=== PATIENT | male | born 1955 | race African-American/Black ===

== ENCOUNTER 2024-04-11 12:06 | Inpatient (IN) | payer OTHER ==
[2024-04-11 14:43] VITALS: BMI 36.3
[2024-04-11] MEDS ORDERED: Calcium Carbonate 500 MG ChewTAB PO PRN (15:38)
[2024-04-11] MEDS ORDERED: Acetaminophen 650 MG Suppository PR PRN (15:38)
[2024-04-11] MEDS ORDERED: Ondansetron PF 4 MG/2 ML Vial IVP PRN (15:38)
[2024-04-11] MEDS ORDERED: Ondansetron ODT 4 MG TAB PO PRN (15:38)
[2024-04-11 19:11] LABS: Hemoglobin A1c 7.2 % (4.0-6.0)
[2024-04-11] MEDS ORDERED: Dextrose 5% in Water 1,000 ML IV PRN (20:07)
[2024-04-11] MEDS ORDERED: HumaLOG 300 UNITS/3 ML VIAL SC PRN (20:07)
[2024-04-11] MEDS ORDERED: Dextrose 50% Abboject 50 ML SYRINGE SLOW IVP PRN (20:07)
[2024-04-11] MEDS ORDERED: Glucagon 1 MG/ML KIT IM PRN (20:07)
[2024-04-11] MEDS: Atorvastatin Calcium 40 MG TAB PO SCH (22:05)
[2024-04-12 04:26] LABS: #Basophils 0.03 10x3/uL (0.0-0.2); #Eosinphils Less than 0.03 10x3/uL (0.0-0.7); %Basophils 0.4 % (0.0-1.0); %Lymphocytes 18.5 % (21.0-51.0); %Monocytes 13.1 % (0.0-10.0); %Neutrophils 67.8 % (42.0-75.0); Hematocrit 38.7 % (42.0-52.0); Hemoglobin 11.8 g/dL (14.0-18.0); Mean Corpuscular HGB CONC 30.5 g/dL (32.0-36.0); Mean Corpuscular Hemoglobin 23.4 pg (27.0-31.0); Mean Corpuscular Volume 76.6 fL (78.0-98.0); Platelet Count 324 10x3/uL (130-400); Red Blood Cell (RBC) Count 5.05 mill/uL (4.70-6.10)
[2024-04-12 04:41] LABS: Anion Gap 13 mmol/L (10-20); BUN (Urea Nitrogen) 20 mg/dL (8.4-25.7); Calc. Creatinine Clearance 100 mL/min (70-130); Calcium 9.6 mg/dL (7.8-10.44); Carbon Dioxide 27 mmol/L (23-31); Cardiac Risk 5.8 (Less than 4.5); Chloride 102 mmol/L (98-107); Cholesterol 144 mg/dl (< 200 Desired); Estimated GFR 73; Glucose 119 mg/dL (80-115); HDL Cholesterol 25 mg/dL (>60 Neg Risk); LDL Cholesterol, Calculated 92 mg/dL; Potassium 4.3 mmol/L (3.5-5.1); Sodium 138 mmol/L (136-145); Triglycerides 133 mg/dL (Less than 150)
[2024-04-12] MEDS: Aspirin 81 mg Enteric Coated Tablet PO SCH (08:10)
[2024-04-12] MEDS: Atorvastatin Calcium 40 MG TAB PO SCH (08:11)
[2024-04-12] MEDS: Furosemide 20 MG TAB PO SCH (11:15)
[2024-04-12] MEDS ORDERED: Benzonatate 100 MG CAP PO PRN (11:30)
[2024-04-12] MEDS: guaiFENesin ER 600 MG TAB PO PRN (12:14)
[2024-04-12] MEDS: HumaLOG 300 UNITS/3 ML VIAL SC PRN (13:31)
[2024-04-12] MEDS: metFORMIN 500 MG TAB PO SCH (18:04)
[2024-04-12] MEDS: Glimepiride 2 MG TAB PO SCH (18:04)
[2024-04-12] MEDS: Scopolamine 1 mg/72 hour Patch TD SCH (18:04)
[2024-04-12] MEDS ORDERED: guaiFENesin ER 600 MG TAB PO SCH (21:00)
[2024-04-13 00:47] LABS: Actual Bicarbonate (HCO3a) 31.9 mEq/L (22-28); Base Excess (BEa) -1.9 mEq/L (-2.0 to +3.0); Calcium, Ionized (arterial) 1.27 mmol/L (1.12-1.30); Carboxyhemoglobin (COHb) 1.2 gm% (0.0-3.0); Hematocrit-ABG 39 % (42.0-52.0); Hemoglobin (Hb) 13.4 g/dL (14.0-18.0); Potassium - ABG Lab 5.09 mmol/L (3.70-5.30)
[2024-04-13 01:20] LABS: #Basophils 0.05 10x3/uL (0.0-0.2); %Basophils 0.3 % (0.0-1.0); %Eosinophils 3.3 % (0.0-10.0); %Lymphocytes 8.2 % (21.0-51.0); %Monocytes 13.3 % (0.0-10.0); %Neutrophils 74.4 % (42.0-75.0); Hematocrit 44.9 % (42.0-52.0); Hemoglobin 13.1 g/dL (14.0-18.0); Mean Corpuscular HGB CONC 29.2 g/dL (32.0-36.0); Mean Corpuscular Hemoglobin 23.1 pg (27.0-31.0); Mean Platelet Volume 9.8 fL (7.4-10.4); Platelet Count 377 10x3/uL (130-400); RBC Distribution Width 16.8 % (11.5-14.5); Red Blood Cell (RBC) Count 5.68 mill/uL (4.70-6.10)
[2024-04-13 01:39] LABS: Actual Bicarbonate (HCO3a) 29.4 mEq/L (22-28); Base Excess (BEa) 3.8 mEq/L (-2.0 to +3.0); CO2 Tension 48.5 mmHg (35.0-45.0); Calcium, Ionized (arterial) 1.18 mmol/L (1.12-1.30); Carboxyhemoglobin (COHb) 1.1 gm% (0.0-3.0); Hematocrit-ABG 39 % (42.0-52.0); Hemoglobin (Hb) 13.4 g/dL (14.0-18.0); O2 Tension (PaO2), arterial 64.5 mmHg (> 80.0); Potassium - ABG Lab 4.98 mmol/L (3.70-5.30); pH, Arterial 7.401 (7.35-7.45)
[2024-04-13 01:42] LABS: ALT (SGPT) 16 U/L (8-55); AST (SGOT) 20 U/L (5-34); Albumin 4.2 g/dL (3.4-4.8); Alkaline Phosphatase 105 U/L (40-110); Anion Gap 15 mmol/L (10-20); BUN (Urea Nitrogen) 21 mg/dL (8.4-25.7); Bilirubin, Total 0.5 mg/dL (0.2-1.2); Calc. Creatinine Clearance 89 mL/min (70-130); Carbon Dioxide 29 mmol/L (23-31); Chloride 100 mmol/L (98-107); Estimated GFR 64; Globulin 4.1 g/dL (2.4-3.5); Glucose 182 mg/dL (80-115); Potassium 5.4 mmol/L (3.5-5.1); Protein, Total 8.3 g/dL (5.8-8.1); Sodium 139 mmol/L (136-145)
[2024-04-13] MEDS ORDERED: Ventilator Sedation Protocol 1 EACH FS SCH (01:45)
[2024-04-13] MEDS ORDERED: Morphine 2 MG/ML VIAL SLOW IVP PRN (01:45)
[2024-04-13] MEDS ORDERED: DISCONTINUE PREVIOUS NARCOTIC PAIN MEDICATIONS AND BENZODIAZEPINES FS SCH (01:45)
[2024-04-13] MEDS ORDERED: Fentanyl BOLUS 250 ML IVPB PRN (01:45)
[2024-04-13] MEDS ORDERED: Propofol BOLUS 1,000 MG/100 ML VIAL IV PRN (01:45)
[2024-04-13 01:47] LABS: CO2 Tension 118.3 mmHg (35.0-45.0); pH, Arterial 7.049 (7.35-7.45)
[2024-04-13 01:47] LABS: ALV-art Gradient 587.875 mmHg (0-20); Puncture Site LRA
[2024-04-13 01:48] LABS: O2 Tension (PaO2), arterial 57.9 mmHg (> 80.0); Puncture Site RRA
[2024-04-13 01:49] LABS: ALV-art Gradient 507.225 mmHg (0-20)
[2024-04-13] MEDS: Fentanyl CADD 100 ML IV SCH (02:02)
[2024-04-13] MEDS: Furosemide 40 MG (4 mL) VIAL ONE (02:51)
[2024-04-13] MEDS ORDERED: Etomidate 40 MG (20 mL) VIAL ONE (02:53)
[2024-04-13] MEDS ORDERED: Rocuronium Bromide 10 MG/ML (10ML VIAL) ONE (02:53)
[2024-04-13] MEDS: Cefepime 2 GM in Sodium Chloride 0.9% 100 ML IVPB SCH (03:01)
[2024-04-13] MEDS: NOREPINEPHRINE 8 MG/250 ML-D5W 250 ML IVPB SCH (03:01)
[2024-04-13] MEDS: NOREPINEPHRINE 8 MG/250 ML-D5W 250 ML ONE (03:02)
[2024-04-13] MEDS: Vancomycin (BATCH) 2.5 GM in Premix 1 BAG IVPB SCH (03:27)
[2024-04-13 06:14] LABS: #Basophils Less than 0.03 10x3/uL (0.0-0.2); #Eosinphils Less than 0.03 10x3/uL (0.0-0.7); %Basophils 0.2 % (0.0-1.0); %Lymphocytes 9.5 % (21.0-51.0); %Monocytes 11.1 % (0.0-10.0); %Neutrophils 78.8 % (42.0-75.0); Hematocrit 40.7 % (42.0-52.0); Mean Corpuscular HGB CONC 29.5 g/dL (32.0-36.0); Mean Platelet Volume 10.1 fL (7.4-10.4); Platelet Count 287 10x3/uL (130-400); RBC Distribution Width 16.5 % (11.5-14.5); Red Blood Cell (RBC) Count 5.22 mill/uL (4.70-6.10)
[2024-04-13] MEDS: Atorvastatin Calcium 40 MG TAB PO SCH (08:10)
[2024-04-13] MEDS: Sodium Chloride 0.9% 1,000 ML IV SCH (08:20)
[2024-04-13] MEDS: Propofol 1,000 MG/100 ML VIAL IV PRN (08:28)
[2024-04-13] MEDS ORDERED: Semaglutide [Rybelsus] 7 MG Tablet PO SCH (09:00)
[2024-04-13] MEDS: Pantoprazole 40 MG VIAL IVP SCH (10:34)
[2024-04-13] MEDS: Enoxaparin 30 MG (0.3 mL) SYRINGE SC SCH (10:34)
[2024-04-13] MEDS ORDERED: Vancomycin (BATCH) 1.25 GM in Premix 1 BAG IVPB SCH (14:00)
[2024-04-13] MEDS: Vancomycin 1 GM in Premix 1 BAG IVPB SCH (17:42)
[2024-04-14 04:57] LABS: #Basophils 0.04 10x3/uL (0.0-0.2); %Basophils 0.4 % (0.0-1.0); %Eosinophils 1.7 % (0.0-10.0); %Lymphocytes 14.7 % (21.0-51.0); %Monocytes 9.6 % (0.0-10.0); %Neutrophils 73.3 % (42.0-75.0); Hematocrit 32.5 % (42.0-52.0); Mean Corpuscular HGB CONC 30.8 g/dL (32.0-36.0); Mean Corpuscular Hemoglobin 23.5 pg (27.0-31.0); Mean Corpuscular Volume 76.5 fL (78.0-98.0); Mean Platelet Volume 9.6 fL (7.4-10.4); Platelet Count 214 10x3/uL (130-400); RBC Distribution Width 15.9 % (11.5-14.5); Red Blood Cell (RBC) Count 4.25 mill/uL (4.70-6.10)
[2024-04-14 05:10] LABS: Vancomycin, Random 17.7 ug/mL (See Comment)
[2024-04-14] MEDS: Metoprolol Tartrate 5 MG (5 mL) VIAL IVP SCH (05:25)
[2024-04-14] MEDS: Enoxaparin 120 MG/0.8 ML SYRINGE SC SCH ×2 (05:36→21:06)
[2024-04-14] MEDS: Amiodarone 450 MG in Dextrose 5% in Water 250 ML IVPB SCH (06:32)
[2024-04-14 06:45] LABS: Anion Gap 14 mmol/L (10-20); BUN (Urea Nitrogen) 29 mg/dL (8.4-25.7); Calc. Creatinine Clearance 92 mL/min (70-130); Calcium 8.7 mg/dL (7.8-10.44); Carbon Dioxide 23 mmol/L (23-31); Chloride 106 mmol/L (98-107); Estimated GFR 65; Glucose 143 mg/dL (80-115); Potassium 3.5 mmol/L (3.5-5.1); Sodium 139 mmol/L (136-145)
[2024-04-14] MEDS ORDERED: Electrolyte Replacement Protocol 1 EACH FS SCH (07:30)
[2024-04-14] MEDS ORDERED: Sodium Chloride 0.9% 1,000 ML IV SCH (07:50)
[2024-04-14 08:31] LABS: Magnesium 1.7 mg/dL (1.6-2.6)
[2024-04-14] MEDS: GLYCOPYRROLATE/PF 0.2 MG/ML VIAL SLOW IVP SCH (08:43)
[2024-04-14] MEDS: Potassium Chloride 20 MEQ in Premix 1 BAG IVPB SCH (08:43)
[2024-04-14] MEDS ORDERED: Glycopyrrolate 0.2 MG/ML 5 ML SYRINGE SLOW IVP SCH (09:00)
[2024-04-14] MEDS ORDERED: Dexmedetomidine In 0.9 % NaCl 100 ML IVPB SCH (09:15)
[2024-04-14] MEDS: Magnesium 2 GM/50 ML(in water) 2 GM in Premix 1 BAG IVPB SCH ×2 (09:21→11:57)
[2024-04-14] MEDS: Amiodarone 150 MG in Dextrose 5% in Water 100 ML IVPB SCH (09:39)
[2024-04-14] MEDS: Lorazepam 2 MG/ML VIAL SLOW IVP PRN (11:24)
[2024-04-14] MEDS: Lactated Ringer's 500 ML IV SCH (12:38)
[2024-04-14] MEDS: Lactated Ringer's 1,000 ML IV SCH ×2 (12:43→18:26)
[2024-04-14] MEDS: Vancomycin HCl 750 MG in Sodium Chloride 0.9% 250 ML 250 ML IVPB SCH (17:46)
[2024-04-15 04:20] LABS: #Basophils Less than 0.03 10x3/uL (0.0-0.2); %Basophils 0.3 % (0.0-1.0); %Lymphocytes 17.9 % (21.0-51.0); %Monocytes 8.9 % (0.0-10.0); %Neutrophils 67.5 % (42.0-75.0); Hematocrit 31.7 % (42.0-52.0); Hemoglobin 9.6 g/dL (14.0-18.0); Mean Corpuscular HGB CONC 30.3 g/dL (32.0-36.0); Mean Corpuscular Hemoglobin 23.4 pg (27.0-31.0); Mean Corpuscular Volume 77.1 fL (78.0-98.0); Platelet Count 217 10x3/uL (130-400); RBC Distribution Width 15.7 % (11.5-14.5); Red Blood Cell (RBC) Count 4.11 mill/uL (4.70-6.10)
[2024-04-15 04:35] LABS: Vancomycin, Random 17.1 ug/mL (See Comment)
[2024-04-15 04:36] LABS: ALT (SGPT) 10 U/L (8-55); AST (SGOT) 16 U/L (5-34); Albumin 2.5 g/dL (3.4-4.8); Alkaline Phosphatase 65 U/L (40-110); Anion Gap 12 mmol/L (10-20); BUN (Urea Nitrogen) 29 mg/dL (8.4-25.7); Bilirubin, Total 0.3 mg/dL (0.2-1.2); Calc. Creatinine Clearance 103 mL/min (70-130); Calcium 8.8 mg/dL (7.8-10.44); Carbon Dioxide 22 mmol/L (23-31); Chloride 106 mmol/L (98-107); Estimated GFR 75; Globulin 3.9 g/dL (2.4-3.5); Glucose 134 mg/dL (80-115); Potassium 3.8 mmol/L (3.5-5.1); Protein, Total 6.4 g/dL (5.8-8.1); Sodium 136 mmol/L (136-145)
[2024-04-15 07:32] LABS: Magnesium 2.6 mg/dL (1.6-2.6)
[2024-04-15] MEDS ORDERED: Albumin 25% 25 GM (100 mL) BOT IVPB SCH (07:45)
[2024-04-15] MEDS ORDERED: DC Sedation Protocol FS SCH (08:00)
[2024-04-15] MEDS: Furosemide 40 MG (4 mL) VIAL SLOW IVP SCH (08:52)
[2024-04-15] MEDS: GLYCOPYRROLATE/PF 0.2 MG/ML VIAL SLOW IVP SCH (08:52)
[2024-04-15] MEDS ORDERED: PROPOFOL 200 MG/20 ML VIAL ONE (09:25)
[2024-04-15] MEDS ORDERED: Etomidate 40 MG (20 mL) VIAL ONE (09:25)
[2024-04-15] MEDS ORDERED: Ventilator Sedation Protocol 1 EACH FS SCH (09:33)
[2024-04-15] MEDS: Lorazepam 2 MG/ML VIAL SLOW IVP PRN (09:44)
[2024-04-15] MEDS ORDERED: DISCONTINUE PREVIOUS NARCOTIC PAIN MEDICATIONS AND BENZODIAZEPINES FS SCH (09:45)
[2024-04-15] MEDS ORDERED: Morphine 2 MG/ML VIAL SLOW IVP PRN (09:45)
[2024-04-15] MEDS ORDERED: Propofol BOLUS 1,000 MG/100 ML VIAL IV PRN (09:45)
[2024-04-15] MEDS: Propofol 1,000 MG/100 ML VIAL IV PRN (09:45)
[2024-04-15] MEDS ORDERED: Fentanyl CADD 100 ML IV SCH (09:45)
[2024-04-15] MEDS ORDERED: Fentanyl BOLUS 250 ML IVPB PRN (09:45)
[2024-04-15] MEDS ORDERED: Dexmedetomidine In 0.9 % NaCl 100 ML IVPB SCH (11:30)
[2024-04-15] MEDS: Lorazepam 2 MG/ML VIAL ONE (11:48)
[2024-04-15] MEDS: Propofol 1,000 MG/100 ML VIAL IV ONE (11:48)
[2024-04-16 04:08] LABS: #Basophils 0.03 10x3/uL (0.0-0.2); %Basophils 0.4 % (0.0-1.0); %Eosinophils 7.2 % (0.0-10.0); %Lymphocytes 14.8 % (21.0-51.0); %Monocytes 8.8 % (0.0-10.0); %Neutrophils 67.6 % (42.0-75.0); Hematocrit 32.2 % (42.0-52.0); Mean Corpuscular HGB CONC 31.1 g/dL (32.0-36.0); Mean Corpuscular Hemoglobin 23.5 pg (27.0-31.0); Mean Corpuscular Volume 75.6 fL (78.0-98.0); Platelet Count 236 10x3/uL (130-400); RBC Distribution Width 15.6 % (11.5-14.5); Red Blood Cell (RBC) Count 4.26 mill/uL (4.70-6.10)
[2024-04-16 04:32] LABS: Anion Gap 12 mmol/L (10-20); BUN (Urea Nitrogen) 23 mg/dL (8.4-25.7); Calc. Creatinine Clearance 125 mL/min (70-130); Carbon Dioxide 22 mmol/L (23-31); Chloride 105 mmol/L (98-107); Estimated GFR 93; Glucose 151 mg/dL (80-115); Potassium 3.4 mmol/L (3.5-5.1); Sodium 136 mmol/L (136-145)
[2024-04-16] MEDS: Potassium Bicarbonate/Cit Ac 20 MEQ TAB PER TUBE SCH (07:58)
[2024-04-16] MEDS: Aspirin Chewable 81 MG TAB PO SCH (09:15)
[2024-04-16] MEDS: Furosemide 40 MG (4 mL) VIAL SLOW IVP SCH (15:30)
[2024-04-16] MEDS: Vancomycin (BATCH) 1.25 GM in Premix 1 BAG IVPB SCH (18:30)
[2024-04-16] MEDS: Amiodarone 200 MG TAB PER TUBE SCH (21:22)
[2024-04-17 05:14] LABS: #Basophils 0.04 10x3/uL (0.0-0.2); %Basophils 0.4 % (0.0-1.0); %Eosinophils 4.7 % (0.0-10.0); %Lymphocytes 11.8 % (21.0-51.0); %Monocytes 12.8 % (0.0-10.0); %Neutrophils 69.2 % (42.0-75.0); Hematocrit 32.3 % (42.0-52.0); Hemoglobin 10.3 g/dL (14.0-18.0); Mean Corpuscular HGB CONC 31.9 g/dL (32.0-36.0); Mean Corpuscular Hemoglobin 23.3 pg (27.0-31.0); Mean Corpuscular Volume 72.9 fL (78.0-98.0); Mean Platelet Volume 10.5 fL (7.4-10.4); Platelet Count 267 10x3/uL (130-400); RBC Distribution Width 15.4 % (11.5-14.5); Red Blood Cell (RBC) Count 4.43 mill/uL (4.70-6.10)
[2024-04-17 05:19] LABS: Anion Gap 14 mmol/L (10-20); BUN (Urea Nitrogen) 20 mg/dL (8.4-25.7); Calc. Creatinine Clearance 107 mL/min (70-130); Calcium 8.9 mg/dL (7.8-10.44); Carbon Dioxide 23 mmol/L (23-31); Chloride 105 mmol/L (98-107); Estimated GFR 80; Glucose 159 mg/dL (80-115); Potassium 3.6 mmol/L (3.5-5.1); Sodium 138 mmol/L (136-145)
[2024-04-17 05:22] LABS: Vancomycin, Random 19.8 ug/mL (See Comment)
[2024-04-17 05:35] LABS: Burr Cells SLIGHT = 2-5 cells HPF (0-1); Microcytosis SLIGHT = 6-15 cells HPF (0-5); Platelet Adequacy Comment Platelets Normal; Polychromasia SLIGHT = 2-3 cells HPF (0-2)
[2024-04-17] MEDS: Scopolamine 1 mg/72 hour Patch TD SCH ×2 (09:59→10:54)
[2024-04-17] MEDS: Senokot S 8.6-50 MG TAB PER TUBE SCH ×2 (13:05→20:54)
[2024-04-17] MEDS: Polyethylene Glycol 3350 17 GM Packet PER TUBE SCH (13:05)
[2024-04-17] MEDS ORDERED: Vancomycin 1 GM in Premix 1 BAG IVPB SCH (18:00)
[2024-04-18 04:44] LABS: #Basophils 0.04 10x3/uL (0.0-0.2); %Basophils 0.4 % (0.0-1.0); %Eosinophils 4.7 % (0.0-10.0); %Lymphocytes 11.8 % (21.0-51.0); %Monocytes 13.4 % (0.0-10.0); %Neutrophils 67.9 % (42.0-75.0); Hematocrit 31.7 % (42.0-52.0); Mean Corpuscular HGB CONC 31.5 g/dL (32.0-36.0); Mean Corpuscular Hemoglobin 23.1 pg (27.0-31.0); Mean Corpuscular Volume 73.4 fL (78.0-98.0); Mean Platelet Volume 9.9 fL (7.4-10.4); Platelet Count 268 10x3/uL (130-400); RBC Distribution Width 15.7 % (11.5-14.5); Red Blood Cell (RBC) Count 4.32 mill/uL (4.70-6.10)
[2024-04-18 05:06] LABS: Anion Gap 13 mmol/L (10-20); BUN (Urea Nitrogen) 19 mg/dL (8.4-25.7); Calc. Creatinine Clearance 112 mL/min (70-130); Carbon Dioxide 22 mmol/L (23-31); Chloride 108 mmol/L (98-107); Estimated GFR 83; Glucose 143 mg/dL (80-115); Potassium 3.8 mmol/L (3.5-5.1); Sodium 139 mmol/L (136-145)
[2024-04-18] MEDS: Polyethylene Glycol 3350 17 GM Packet PER TUBE SCH (10:00)
[2024-04-18] MEDS: Furosemide 40 MG (4 mL) VIAL SLOW IVP SCH (17:11)
[2024-04-19 03:55] LABS: #Basophils 0.05 10x3/uL (0.0-0.2); %Basophils 0.5 % (0.0-1.0); %Eosinophils 6.1 % (0.0-10.0); %Lymphocytes 14.2 % (21.0-51.0); %Monocytes 11.2 % (0.0-10.0); %Neutrophils 65.1 % (42.0-75.0); Hematocrit 31.3 % (42.0-52.0); Hemoglobin 9.8 g/dL (14.0-18.0); Mean Corpuscular HGB CONC 31.3 g/dL (32.0-36.0); Mean Corpuscular Hemoglobin 23.6 pg (27.0-31.0); Mean Corpuscular Volume 75.4 fL (78.0-98.0); Platelet Count 282 10x3/uL (130-400); RBC Distribution Width 15.7 % (11.5-14.5); Red Blood Cell (RBC) Count 4.15 mill/uL (4.70-6.10)
[2024-04-19 04:14] LABS: Anion Gap 15 mmol/L (10-20); BUN (Urea Nitrogen) 23 mg/dL (8.4-25.7); Calc. Creatinine Clearance 95 mL/min (70-130); Calcium 9.2 mg/dL (7.8-10.44); Carbon Dioxide 25 mmol/L (23-31); Chloride 105 mmol/L (98-107); Estimated GFR 69; Glucose 152 mg/dL (80-115); Potassium 3.8 mmol/L (3.5-5.1); Sodium 141 mmol/L (136-145)
[2024-04-19 07:00] LABS: Actual Bicarbonate (HCO3a) 25.3 mEq/L (22-28); Carboxyhemoglobin (COHb) 0.4 gm% (0.0-3.0); Hematocrit-ABG 33 % (42.0-52.0); Hemoglobin (Hb) 11.1 g/dL (14.0-18.0); O2 Tension (PaO2), arterial 69.1 mmHg (> 80.0); Potassium - ABG Lab 3.75 mmol/L (3.70-5.30); pH, Arterial 7.378 (7.35-7.45)
[2024-04-19 07:01] LABS: Puncture Site LBA
[2024-04-19] MEDS: Furosemide 40 MG (4 mL) VIAL SLOW IVP SCH (08:51)
[2024-04-20 05:06] LABS: #Basophils 0.04 10x3/uL (0.0-0.2); %Basophils 0.4 % (0.0-1.0); %Eosinophils 5.9 % (0.0-10.0); %Lymphocytes 15.7 % (21.0-51.0); %Monocytes 12.1 % (0.0-10.0); %Neutrophils 61.9 % (42.0-75.0); Hematocrit 31.3 % (42.0-52.0); Hemoglobin 9.8 g/dL (14.0-18.0); Mean Corpuscular HGB CONC 31.3 g/dL (32.0-36.0); Mean Corpuscular Hemoglobin 23.6 pg (27.0-31.0); Mean Corpuscular Volume 75.4 fL (78.0-98.0); Mean Platelet Volume 9.5 fL (7.4-10.4); Platelet Count 257 10x3/uL (130-400); RBC Distribution Width 15.7 % (11.5-14.5); Red Blood Cell (RBC) Count 4.15 mill/uL (4.70-6.10)
[2024-04-20 05:17] LABS: Anion Gap 15 mmol/L (10-20); BUN (Urea Nitrogen) 28 mg/dL (8.4-25.7); Calc. Creatinine Clearance 107 mL/min (70-130); Calcium 9.5 mg/dL (7.8-10.44); Carbon Dioxide 25 mmol/L (23-31); Chloride 105 mmol/L (98-107); Estimated GFR 80; Glucose 174 mg/dL (80-115); Potassium 3.5 mmol/L (3.5-5.1); Sodium 141 mmol/L (136-145)
[2024-04-20] MEDS: Potassium Bicarbonate/Cit Ac 20 MEQ TAB PER TUBE SCH (06:47)
[2024-04-20] MEDS: Furosemide 40 MG (4 mL) VIAL SLOW IVP SCH (08:01)
[2024-04-21 04:37] LABS: #Basophils 0.04 10x3/uL (0.0-0.2); %Basophils 0.4 % (0.0-1.0); %Eosinophils 5.8 % (0.0-10.0); %Lymphocytes 18.1 % (21.0-51.0); %Monocytes 12.3 % (0.0-10.0); %Neutrophils 59.1 % (42.0-75.0); Hematocrit 31.4 % (42.0-52.0); Hemoglobin 9.8 g/dL (14.0-18.0); Mean Corpuscular HGB CONC 31.2 g/dL (32.0-36.0); Mean Corpuscular Hemoglobin 23.3 pg (27.0-31.0); Mean Corpuscular Volume 74.6 fL (78.0-98.0); Mean Platelet Volume 9.3 fL (7.4-10.4); Platelet Count 261 10x3/uL (130-400); RBC Distribution Width 15.3 % (11.5-14.5); Red Blood Cell (RBC) Count 4.21 mill/uL (4.70-6.10)
[2024-04-21 04:47] LABS: Anion Gap 12 mmol/L (10-20); BUN (Urea Nitrogen) 30 mg/dL (8.4-25.7); Calc. Creatinine Clearance 103 mL/min (70-130); Calcium 9.6 mg/dL (7.8-10.44); Carbon Dioxide 28 mmol/L (23-31); Chloride 103 mmol/L (98-107); Estimated GFR 76; Glucose 169 mg/dL (80-115); Potassium 3.2 mmol/L (3.5-5.1); Sodium 140 mmol/L (136-145)
[2024-04-21] MEDS: Potassium Chloride 20 MEQ in Premix 1 BAG IVPB SCH (06:29)
[2024-04-21 07:30] LABS: Actual Bicarbonate (HCO3a) 29.3 mEq/L (22-28); Base Excess (BEa) 4.8 mEq/L (-2.0 to +3.0); CO2 Tension 42.9 mmHg (35.0-45.0); Carboxyhemoglobin (COHb) 0.5 gm% (0.0-3.0); Hematocrit-ABG 31 % (42.0-52.0); Hemoglobin (Hb) 10.7 g/dL (14.0-18.0); O2 Tension (PaO2), arterial 76.2 mmHg (> 80.0); pH, Arterial 7.452 (7.35-7.45)
[2024-04-21 07:45] LABS: Puncture Site RRA
[2024-04-21 07:46] LABS: ALV-art Gradient 155.375 mmHg (0-20)
[2024-04-21 15:22] LABS: Potassium 3.8 mmol/L (3.5-5.1)
[2024-04-22 05:06] LABS: #Basophils 0.05 10x3/uL (0.0-0.2); %Basophils 0.5 % (0.0-1.0); %Eosinophils 7.7 % (0.0-10.0); %Lymphocytes 18.2 % (21.0-51.0); %Monocytes 8.5 % (0.0-10.0); %Neutrophils 60.9 % (42.0-75.0); Hematocrit 33.1 % (42.0-52.0); Hemoglobin 10.4 g/dL (14.0-18.0); Mean Corpuscular HGB CONC 31.4 g/dL (32.0-36.0); Mean Corpuscular Volume 73.1 fL (78.0-98.0); Mean Platelet Volume 10.1 fL (7.4-10.4); Platelet Count 271 10x3/uL (130-400); RBC Distribution Width 15.2 % (11.5-14.5); Red Blood Cell (RBC) Count 4.53 mill/uL (4.70-6.10)
[2024-04-22 05:25] LABS: Anion Gap 15 mmol/L (10-20); BUN (Urea Nitrogen) 32 mg/dL (8.4-25.7); Calc. Creatinine Clearance 95 mL/min (70-130); Carbon Dioxide 27 mmol/L (23-31); Chloride 100 mmol/L (98-107); Estimated GFR 70; Glucose 172 mg/dL (80-115); Potassium 3.4 mmol/L (3.5-5.1); Sodium 139 mmol/L (136-145)
[2024-04-22 07:16] LABS: Actual Bicarbonate (HCO3a) 27.7 mEq/L (22-28); Base Excess (BEa) 4.1 mEq/L (-2.0 to +3.0); CO2 Tension 37.5 mmHg (35.0-45.0); Calcium, Ionized (arterial) 1.18 mmol/L (1.12-1.30); Carboxyhemoglobin (COHb) 0.5 gm% (0.0-3.0); Hematocrit-ABG 33 % (42.0-52.0); Hemoglobin (Hb) 11.1 g/dL (14.0-18.0); O2 Tension (PaO2), arterial 80.7 mmHg (> 80.0); Potassium - ABG Lab 3.42 mmol/L (3.70-5.30); pH, Arterial 7.486 (7.35-7.45)
[2024-04-22] MEDS ORDERED: Rocuronium Bromide 10 MG/ML (10ML VIAL) ONE (07:19)
[2024-04-22] MEDS ORDERED: PROPOFOL 20 ML ONE (07:20)
[2024-04-22 07:31] LABS: ALV-art Gradient 157.625 mmHg (0-20); Puncture Site RRA
[2024-04-22] MEDS ORDERED: EPINEPHrine 1 MG/ML VIAL ONE (07:53)
[2024-04-22] MEDS ORDERED: Bupivacaine 0.25% HCL 30 ML VIAL ONE (07:53)
[2024-04-22] MEDS ORDERED: Potassium Chloride 20 MEQ in Premix 1 BAG IVPB SCH (08:00)
[2024-04-22] MEDS ORDERED: Midazolam HCl 2 mg/2 ml Vial ONE (08:10)
[2024-04-22] MEDS: Potassium Chloride 20 MEQ in Premix 1 BAG IVPB SCH (10:51)
[2024-04-22] MEDS: GLYCOPYRROLATE/PF 0.2 MG/ML VIAL SLOW IVP SCH (11:55)
[2024-04-23 04:49] LABS: #Basophils 0.06 10x3/uL (0.0-0.2); %Basophils 0.5 % (0.0-1.0); %Eosinophils 5.9 % (0.0-10.0); %Lymphocytes 14.7 % (21.0-51.0); %Monocytes 8.8 % (0.0-10.0); %Neutrophils 68.8 % (42.0-75.0); Hematocrit 34.1 % (42.0-52.0); Hemoglobin 10.6 g/dL (14.0-18.0); Mean Corpuscular HGB CONC 31.1 g/dL (32.0-36.0); Mean Corpuscular Hemoglobin 22.6 pg (27.0-31.0); Mean Corpuscular Volume 72.7 fL (78.0-98.0); Mean Platelet Volume 9.7 fL (7.4-10.4); Platelet Count 303 10x3/uL (130-400); RBC Distribution Width 14.9 % (11.5-14.5); Red Blood Cell (RBC) Count 4.69 mill/uL (4.70-6.10)
[2024-04-23 04:56] LABS: Anion Gap 16 mmol/L (10-20); BUN (Urea Nitrogen) 31 mg/dL (8.4-25.7); Calc. Creatinine Clearance 79 mL/min (70-130); Calcium 9.6 mg/dL (7.8-10.44); Carbon Dioxide 27 mmol/L (23-31); Chloride 99 mmol/L (98-107); Estimated GFR 58; Glucose 165 mg/dL (80-115); Potassium 3.5 mmol/L (3.5-5.1); Sodium 138 mmol/L (136-145)
[2024-04-23 07:11] LABS: Base Excess (BEa) 5.2 mEq/L (-2.0 to +3.0); Calcium, Ionized (arterial) 1.12 mmol/L (1.12-1.30); Carboxyhemoglobin (COHb) 0.5 gm% (0.0-3.0); Hematocrit-ABG 33 % (42.0-52.0); Hemoglobin (Hb) 11.1 g/dL (14.0-18.0); O2 Tension (PaO2), arterial 91.8 mmHg (> 80.0); Potassium - ABG Lab 3.56 mmol/L (3.70-5.30); Puncture Site LR; pH, Arterial 7.442 (7.35-7.45)
[2024-04-23] MEDS ORDERED: Potassium Chloride 20 MEQ TAB PO SCH (08:00)
[2024-04-23] MEDS: Potassium Bicarbonate/Cit Ac 20 MEQ TAB PER TUBE SCH (08:48)
[2024-04-23] MEDS: Furosemide 40 MG (4 mL) VIAL SLOW IVP SCH (08:51)
[2024-04-23] MEDS: Enoxaparin 40 MG (0.4 mL) SYRINGE SC SCH (08:51)
[2024-04-23] MEDS: Acetaminophen 325 MG TAB PO PRN (08:54)
[2024-04-24 04:53] LABS: #Basophils 0.04 10x3/uL (0.0-0.2); %Basophils 0.3 % (0.0-1.0); %Eosinophils 3.4 % (0.0-10.0); %Lymphocytes 13.6 % (21.0-51.0); %Monocytes 8.5 % (0.0-10.0); %Neutrophils 73.3 % (42.0-75.0); Hematocrit 33.3 % (42.0-52.0); Hemoglobin 10.3 g/dL (14.0-18.0); Mean Corpuscular HGB CONC 30.9 g/dL (32.0-36.0); Mean Corpuscular Hemoglobin 22.9 pg (27.0-31.0); Mean Corpuscular Volume 74.2 fL (78.0-98.0); Mean Platelet Volume 9.6 fL (7.4-10.4); Platelet Count 280 10x3/uL (130-400); RBC Distribution Width 15.1 % (11.5-14.5); Red Blood Cell (RBC) Count 4.49 mill/uL (4.70-6.10)
[2024-04-24 05:01] LABS: Anion Gap 11 mmol/L (10-20); BUN (Urea Nitrogen) 31 mg/dL (8.4-25.7); Calc. Creatinine Clearance 91 mL/min (70-130); Calcium 9.4 mg/dL (7.8-10.44); Carbon Dioxide 32 mmol/L (23-31); Chloride 100 mmol/L (98-107); Estimated GFR 69; Glucose 188 mg/dL (80-115); Potassium 3.7 mmol/L (3.5-5.1); Sodium 139 mmol/L (136-145)
[2024-04-24] MEDS: Lansoprazole 30 MG/10 ML UDCUP PER TUBE SCH (09:30)
[2024-04-25 04:31] LABS: #Basophils 0.05 10x3/uL (0.0-0.2); %Basophils 0.3 % (0.0-1.0); %Eosinophils 1.5 % (0.0-10.0); %Lymphocytes 11.2 % (21.0-51.0); %Neutrophils 78.5 % (42.0-75.0); Hematocrit 32.4 % (42.0-52.0); Hemoglobin 9.9 g/dL (14.0-18.0); Mean Corpuscular HGB CONC 30.6 g/dL (32.0-36.0); Mean Corpuscular Hemoglobin 22.9 pg (27.0-31.0); Mean Corpuscular Volume 74.8 fL (78.0-98.0); Mean Platelet Volume 9.8 fL (7.4-10.4); Platelet Count 303 10x3/uL (130-400); RBC Distribution Width 15.2 % (11.5-14.5); Red Blood Cell (RBC) Count 4.33 mill/uL (4.70-6.10)
[2024-04-25 04:47] LABS: Anion Gap 12 mmol/L (10-20); BUN (Urea Nitrogen) 34 mg/dL (8.4-25.7); Calc. Creatinine Clearance 82 mL/min (70-130); Calcium 9.5 mg/dL (7.8-10.44); Carbon Dioxide 30 mmol/L (23-31); Chloride 100 mmol/L (98-107); Estimated GFR 61; Glucose 181 mg/dL (80-115); Potassium 3.6 mmol/L (3.5-5.1); Sodium 138 mmol/L (136-145)
[2024-04-25] MEDS: Lisinopril 10 MG TAB PO SCH (20:22)
[2024-04-25] MEDS: Metoprolol Tartrate 5 MG (5 mL) VIAL ONE (20:23)
[2024-04-25] MEDS: Sodium Chloride 0.9% 500 ML IV SCH (20:24)
[2024-04-25 20:34] LABS: Anion Gap 17 mmol/L (10-20); BUN (Urea Nitrogen) 35 mg/dL (8.4-25.7); Calc. Creatinine Clearance 74 mL/min (70-130); Calcium 9.5 mg/dL (7.8-10.44); Carbon Dioxide 28 mmol/L (23-31); Chloride 100 mmol/L (98-107); Estimated GFR 55; Glucose 177 mg/dL (80-115); Magnesium 2.2 mg/dL (1.6-2.6); Potassium 3.6 mmol/L (3.5-5.1); Sodium 141 mmol/L (136-145)
[2024-04-25] MEDS: Melatonin 3 MG TAB PO SCH (21:40)
[2024-04-26 04:09] LABS: Hemoglobin 9.5 g/dL (14.0-18.0); Mean Corpuscular HGB CONC 30.6 g/dL (32.0-36.0); Mean Corpuscular Hemoglobin 23.1 pg (27.0-31.0); Mean Corpuscular Volume 75.2 fL (78.0-98.0); Mean Platelet Volume 9.8 fL (7.4-10.4); Platelet Count 288 10x3/uL (130-400); RBC Distribution Width 15.3 % (11.5-14.5); Red Blood Cell (RBC) Count 4.12 mill/uL (4.70-6.10)
[2024-04-26 04:17] LABS: Anion Gap 14 mmol/L (10-20); BUN (Urea Nitrogen) 35 mg/dL (8.4-25.7); Calc. Creatinine Clearance 86 mL/min (70-130); Calcium 9.4 mg/dL (7.8-10.44); Carbon Dioxide 29 mmol/L (23-31); Chloride 104 mmol/L (98-107); Estimated GFR 66; Glucose 196 mg/dL (80-115); Potassium 3.9 mmol/L (3.5-5.1); Sodium 143 mmol/L (136-145)
[2024-04-26 04:36] LABS: Band 4 % (5-11); Eosinophils 3 % (0-10); Lymphocytes 10 % (21-51); Microcytosis SLIGHT = 6-15 cells HPF (0-5); Monocytes 9 % (0-10); Neutrophil 74 % (42-75); Platelet Adequacy Comment Platelets Normal; Polychromasia SLIGHT = 2-3 cells HPF (0-2)
[2024-04-26] MEDS: Glycopyrrolate 0.2 MG/ML 5 ML SYRINGE SLOW IVP SCH (13:21)
[2024-04-27 04:47] LABS: #Basophils 0.05 10x3/uL (0.0-0.2); #Eosinphils Less than 0.03 10x3/uL (0.0-0.7); %Basophils 0.4 % (0.0-1.0); %Eosinophils 0.1 % (0.0-10.0); %Lymphocytes 11.8 % (21.0-51.0); %Neutrophils 78.3 % (42.0-75.0); Hematocrit 33.3 % (42.0-52.0); Hemoglobin 9.9 g/dL (14.0-18.0); Mean Corpuscular HGB CONC 29.7 g/dL (32.0-36.0); Mean Corpuscular Hemoglobin 22.3 pg (27.0-31.0); Mean Platelet Volume 10.1 fL (7.4-10.4); Platelet Count 388 10x3/uL (130-400); RBC Distribution Width 15.3 % (11.5-14.5); Red Blood Cell (RBC) Count 4.44 mill/uL (4.70-6.10)
[2024-04-27 05:10] LABS: Anion Gap 13 mmol/L (10-20); BUN (Urea Nitrogen) 32 mg/dL (8.4-25.7); Calc. Creatinine Clearance 88 mL/min (70-130); Calcium 9.5 mg/dL (7.8-10.44); Carbon Dioxide 30 mmol/L (23-31); Chloride 106 mmol/L (98-107); Estimated GFR 68; Glucose 183 mg/dL (80-115); Potassium 3.6 mmol/L (3.5-5.1); Sodium 145 mmol/L (136-145)
[2024-04-27] MEDS: HumaLOG 300 UNITS/3 ML VIAL SC PRN (11:26)
[2024-04-27] MEDS: QUEtiapine 25 MG TAB PO PRN (21:20)
[2024-04-28 05:43] LABS: Anion Gap 15 mmol/L (10-20); BUN (Urea Nitrogen) 33 mg/dL (8.4-25.7); Calc. Creatinine Clearance 93 mL/min (70-130); Calcium 9.5 mg/dL (7.8-10.44); Carbon Dioxide 28 mmol/L (23-31); Chloride 107 mmol/L (98-107); Estimated GFR 73; Glucose 186 mg/dL (80-115); Potassium 3.3 mmol/L (3.5-5.1); Sodium 147 mmol/L (136-145)
[2024-04-28 06:17] LABS: #Basophils 0.05 10x3/uL (0.0-0.2); %Basophils 0.5 % (0.0-1.0); %Eosinophils 4.3 % (0.0-10.0); %Lymphocytes 16.4 % (21.0-51.0); %Monocytes 9.2 % (0.0-10.0); %Neutrophils 69.1 % (42.0-75.0); Hemoglobin 10.1 g/dL (14.0-18.0); Mean Corpuscular HGB CONC 29.7 g/dL (32.0-36.0); Mean Corpuscular Hemoglobin 22.5 pg (27.0-31.0); Mean Corpuscular Volume 75.7 fL (78.0-98.0); Mean Platelet Volume 10.7 fL (7.4-10.4); Platelet Count 395 10x3/uL (130-400); RBC Distribution Width 15.5 % (11.5-14.5); Red Blood Cell (RBC) Count 4.49 mill/uL (4.70-6.10)
[2024-04-28] MEDS ORDERED: Potassium Chloride 20 MEQ TAB PER TUBE SCH (06:30)
[2024-04-28] MEDS: Potassium Bicarbonate/Cit Ac 20 MEQ TAB PER TUBE SCH (07:42)
[2024-04-28] MEDS ORDERED: Potassium Bicarbonate/Cit Ac 20 MEQ TAB PER TUBE SCH (08:00)
[2024-04-28] MEDS: DC Sedation Protocol FS ONE (13:45)
[2024-04-29 04:49] LABS: #Basophils 0.07 10x3/uL (0.0-0.2); %Basophils 0.7 % (0.0-1.0); %Eosinophils 6.1 % (0.0-10.0); %Lymphocytes 14.6 % (21.0-51.0); %Monocytes 10.4 % (0.0-10.0); %Neutrophils 67.7 % (42.0-75.0); Hematocrit 36.3 % (42.0-52.0); Hemoglobin 10.9 g/dL (14.0-18.0); Mean Corpuscular Hemoglobin 22.8 pg (27.0-31.0); Mean Corpuscular Volume 75.9 fL (78.0-98.0); Mean Platelet Volume 9.8 fL (7.4-10.4); Platelet Count 453 10x3/uL (130-400); RBC Distribution Width 15.5 % (11.5-14.5); Red Blood Cell (RBC) Count 4.78 mill/uL (4.70-6.10)
[2024-04-29 05:17] LABS: Anion Gap 16 mmol/L (10-20); BUN (Urea Nitrogen) 29 mg/dL (8.4-25.7); Calc. Creatinine Clearance 89 mL/min (70-130); Carbon Dioxide 30 mmol/L (23-31); Chloride 107 mmol/L (98-107); Estimated GFR 70; Glucose 179 mg/dL (80-115); Potassium 3.8 mmol/L (3.5-5.1); Sodium 149 mmol/L (136-145)
[2024-04-30 08:09] LABS: #Basophils 0.06 10x3/uL (0.0-0.2); %Basophils 0.6 % (0.0-1.0); %Eosinophils 5.7 % (0.0-10.0); %Lymphocytes 14.8 % (21.0-51.0); %Monocytes 10.1 % (0.0-10.0); %Neutrophils 68.4 % (42.0-75.0); Hematocrit 39.6 % (42.0-52.0); Hemoglobin 11.6 g/dL (14.0-18.0); Mean Corpuscular HGB CONC 29.3 g/dL (32.0-36.0); Mean Corpuscular Hemoglobin 22.4 pg (27.0-31.0); Mean Corpuscular Volume 76.4 fL (78.0-98.0); Mean Platelet Volume 10.3 fL (7.4-10.4); Platelet Count 532 10x3/uL (130-400); RBC Distribution Width 15.4 % (11.5-14.5); Red Blood Cell (RBC) Count 5.18 mill/uL (4.70-6.10)
[2024-04-30 08:40] LABS: Anion Gap 19 mmol/L (10-20); BUN (Urea Nitrogen) 29 mg/dL (8.4-25.7); Calc. Creatinine Clearance 76 mL/min (70-130); Calcium 10.5 mg/dL (7.8-10.44); Carbon Dioxide 31 mmol/L (23-31); Chloride 104 mmol/L (98-107); Estimated GFR 59; Glucose 194 mg/dL (80-115); Potassium 3.8 mmol/L (3.5-5.1); Sodium 150 mmol/L (136-145)
[2024-05-01 06:35] LABS: #Basophils 0.04 10x3/uL (0.0-0.2); #Eosinphils Less than 0.03 10x3/uL (0.0-0.7); %Basophils 0.4 % (0.0-1.0); %Eosinophils 0.2 % (0.0-10.0); %Lymphocytes 15.8 % (21.0-51.0); %Monocytes 10.2 % (0.0-10.0); %Neutrophils 72.4 % (42.0-75.0); Hematocrit 36.8 % (42.0-52.0); Hemoglobin 10.8 g/dL (14.0-18.0); Mean Corpuscular HGB CONC 29.3 g/dL (32.0-36.0); Mean Corpuscular Hemoglobin 22.6 pg (27.0-31.0); Mean Platelet Volume 10.5 fL (7.4-10.4); Platelet Count 516 10x3/uL (130-400); RBC Distribution Width 15.5 % (11.5-14.5); Red Blood Cell (RBC) Count 4.78 mill/uL (4.70-6.10)
[2024-05-01 08:36] LABS: Anion Gap 24 mmol/L (10-20); BUN (Urea Nitrogen) 38 mg/dL (8.4-25.7); Calc. Creatinine Clearance 69 mL/min (70-130); Calcium 10.5 mg/dL (7.8-10.44); Carbon Dioxide 18 mmol/L (23-31); Chloride 107 mmol/L (98-107); Estimated GFR 52; Glucose 170 mg/dL (80-115); Potassium 5.1 mmol/L (3.5-5.1); Sodium 144 mmol/L (136-145)
[2024-05-01] MEDS ORDERED: Amiodarone 200 MG TAB PO SCH (09:00)
[2024-05-01] MEDS: Amiodarone 200 MG TAB PER TUBE SCH (11:00)
[2024-05-01] MEDS: Lansoprazole 30 MG/10 ML UDCUP PER TUBE SCH (11:04)
[2024-05-01 11:43] VITALS: BMI 33.2
[2024-05-01 19:43] VITALS: TEMP 97.4
[2024-05-02 06:59] LABS: Anion Gap 16 mmol/L (10-20); BUN (Urea Nitrogen) 40 mg/dL (8.4-25.7); Calc. Creatinine Clearance 67 mL/min (70-130); Carbon Dioxide 31 mmol/L (23-31); Chloride 102 mmol/L (98-107); Estimated GFR 51; Glucose 143 mg/dL (80-115); Potassium 3.9 mmol/L (3.5-5.1); Sodium 145 mmol/L (136-145)
[2024-05-02 07:34] LABS: #Basophils 0.04 10x3/uL (0.0-0.2); %Basophils 0.5 % (0.0-1.0); %Lymphocytes 22.5 % (21.0-51.0); %Monocytes 16.6 % (0.0-10.0); %Neutrophils 56.1 % (42.0-75.0); Hematocrit 40.3 % (42.0-52.0); Hemoglobin 11.9 g/dL (14.0-18.0); Mean Corpuscular HGB CONC 29.5 g/dL (32.0-36.0); Mean Corpuscular Hemoglobin 22.3 pg (27.0-31.0); Mean Corpuscular Volume 75.5 fL (78.0-98.0); Mean Platelet Volume 10.7 fL (7.4-10.4); Platelet Count 482 10x3/uL (130-400); RBC Distribution Width 15.4 % (11.5-14.5); Red Blood Cell (RBC) Count 5.34 mill/uL (4.70-6.10)
[2024-05-02] MEDS ORDERED: Glycopyrrolate 0.2 MG/ML 5 ML SYRINGE SLOW IVP PRN (08:48)
[2024-05-02 11:18] VITALS: BP 142/72
== END 2024-05-02 17:03 | disposition short-term general hospital (02) | DRG 4 ==
LOC: ERS 12:06 → ERHOLD 13:24 → 2SE 19:07 → CCU 04-13 00:54 → IMCU/EMU 04-28 14:23
PROVIDERS: ADMIT Student in an Organized Health Care Education/Training Program; ATTEND Student in an Organized Health Care Education/Training Program
PROC: 0BH17EZ Insertion of Endotracheal Airway into Trachea, Via Natural or Artificial Opening (ICD-10-PCS; 2024-04-11)
PROC: 4A13XR1 Monitoring of Arterial Saturation, Peripheral, External Approach (ICD-10-PCS; 2024-04-11)
PROC: 5A1955Z Respiratory Ventilation, Greater than 96 Consecutive Hours (ICD-10-PCS; 2024-04-13)
PROC: 5A09457 Assistance with Respiratory Ventilation, 24-96 Consecutive Hours, Continuous Positive Airway Pressure (ICD-10-PCS; 2024-04-13)
PROC: 3E033XZ Introduction of Vasopressor into Peripheral Vein, Percutaneous Approach (ICD-10-PCS; 2024-04-13)
PROC: 30233J1 Transfusion of Nonautologous Serum Albumin into Peripheral Vein, Percutaneous Approach (ICD-10-PCS; 2024-04-15)
PROC: 0B110F4 Bypass Trachea to Cutaneous with Tracheostomy Device, Open Approach (ICD-10-PCS; principal; 2024-04-23)
PROC: 0DH63UZ Insertion of Feeding Device into Stomach, Percutaneous Approach (ICD-10-PCS; 2024-04-23)
DX: J69.0 Pneumonitis due to inhalation of food and vomit (principal); J96.01 Acute respiratory failure with hypoxia; G93.41 Metabolic encephalopathy; J96.02 Acute respiratory failure with hypercapnia; Z43.1 Encounter for attention to gastrostomy; I10 Essential (primary) hypertension; E11.9 Type 2 diabetes mellitus without complications; E78.00 Pure hypercholesterolemia, unspecified; M19.90 Unspecified osteoarthritis, unspecified site; H50.00 Unspecified esotropia; H53.2 Diplopia; H55.00 Unspecified nystagmus; R29.90 Unspecified symptoms and signs involving the nervous system; E87.5 Hyperkalemia; N47.1 Phimosis; N35.919 Unspecified urethral stricture, male, unspecified site; I48.0 Paroxysmal atrial fibrillation; Z86.73 Personal history of transient ischemic attack (TIA), and cerebral infarction without residual deficits; Z43.0 Encounter for attention to tracheostomy; Z87.891 Personal history of nicotine dependence; Z79.84 Long term (current) use of oral hypoglycemic drugs; Z82.49 Family history of ischemic heart disease and other diseases of the circulatory system; Z83.3 Family history of diabetes mellitus
CPT/HCPCS: 36415; 36416; 36600; 70450; 70551; 71045; 80048; 80053; 80061; 80202; 82805; 83036; 83735; 83880; 84145; 84443; 85025; 85379; 87070; 87081; 87205; 93005; 93010; 93306; 94002; 94003; 94640; 95700; 95711; 95819; B4087; C9113; J0171; J0282; J0665; J0692; J1650; J1815; J1940; J2060; J2250; J2704; J3010; J3370; J3370-JW; J3475; J3480; J3490; J7030; J7050; J7070; J7120